=== PATIENT | female | born 1960 | race Caucasian/White ===

== ENCOUNTER 2022-01-02 10:30 | Emergency (ER) | payer OTHER, SELFPAY ==
[2022-01-02] VITALS (12 sets, daily range): BP systolic 181–238; BP diastolic 99–127; PULSE 103–117; RESP 22; TEMP 36.9; O2SAT 90–99; BMI 24.7
--- NOTE | 2022-01-02 10:50 | ED.SOB ---
HPI - SOB/Dyspnea General Chief Complaint: Hypertension Stated Complaint: severe sob, lt arm swelling, flu/cough, WIC sent Time Seen by Provider: 01/02/22 10:39 Source: patient Limitations: no limitations History of Present Illness HPI Narrative: This is a 61-year-old female with history of hypertension which is currently untreated who presents with several months of left upper extremity swelling, no swelling of the breast and skin changes that have been there for several months and shortness of breath that has been worsening over weeks to months. Patient denies fevers or chills. She denies chest pain although she states she started to get discomfort in her left upper chest. She does appreciate some skin changes of her chest and breast on the left breast region which have been slowly worsening. Patient states sometimes she short of breath if she lays flat or exerts herself but has been able to exert herself. Patient denies any abdominal pain. She is had occasional nausea and dry heaves but not persistently. She denies back or flank pain. Patient denies any swelling in her lower extremities. She denies any swelling her neck or face. Patient denies any numbness, tingling or weakness in her extremities. She states swelling of her upper extremity has been slowly worsening. She did have a DVT ultrasound in the past she states they saw something in her axilla but no blood clot at that time. Patient states her blood pressures have been in the 200s in the past but she does not take any medication, she and her state this is a little higher than normal. She denies any recent surgeries. She is a family history of breast cancer in her mother and her mother in her 40s patient was around age 17 when this occurred. Denies tobacco, no regular alcohol or illicit. Patient is accompanied by her . She has not seen a primary care in some time and is not established. Patient did ask her to leave prior to finishing her full evaluation. He states he is worried she may have share his full medical situation with him when asked directly to the patient she states it is okay to give her medical information to her gives verbal consent to share this information with him. Related Data Previous Rx's Medication Instructions Recorded enoxaparin 120 mg/0.8 mL 110 mg (0.7333 mL) SUBCUT DAILY 14 01/02/22 subcutaneous syringe (Lovenox) days #12 mL enoxaparin 120 mg/0.8 mL 110 mg (0.7333 mL) SUBCUT DAILY 14 01/02/22 subcutaneous syringe (Lovenox) days #8 mL Allergies Allergy/AdvReac Type Severity Reaction Status Date / Time No Known Drug Allergies Allergy Verified 01/02/22 11:13 Review of Systems Review of Systems ROS Unobtainable: All systems reviewed & are unremarkable except as noted in HPI and below Patient History Social History Smoking Status: Never smoker Exam Narrative Exam Narrative: GEN: well nourished, well appearing female, alert and oriented x 3, patient appears to be in mild distress. HEENT: Atraumatic, pupils are equal round reactive to light, extraocular movements are intact, nares are clear, moist mucous membranes, no facial swelling or neck swelling appreciated. HEART: Tachycardic but Regular rate and rhythm without murmur, clicks, rubs. Pulses are equal in upper and lower extremities. Patient has swelling of the left upper extremity with swelling and fullness of the left breast, patient has some obvious skin changes with erythema and no open ulceration but skin is edematous with a peau d'orange skin changes, patient has some retraction of the nipple as well as alteration in skin color, there is some vascular engorgement as well. Patient does not have a discrete lump but the entire breast feels full patient is not significantly tender and breasts is 2-3 times the size of the right breast. Patient also appears to have induration and skin changes in the left axilla as well. LUNGS:Lungs clear to auscultation, no wheezes, rales, crackles, chest moves symmetrically, mild tachypnea patient able to speak in full sentences. ABD:bowel sounds normal, soft, non-tender, no guarding, rebound, rigidity, no masses noted, no hepatosplenomegaly :No CVA tenderness MSCL: Non-tender, no muscle atrophy, muscles strength 5/5 upper and lower extremities, full range of motion, normal gait. Patient has significant swelling of left upper extremity, no tenderness, no warmth or erythema, patient has 2+ radial pulses bilaterally. NEURO:CN 2-12 intact, sensation normal SKIN: See above Initial Vital Signs Initial Vital Signs: Vital Signs Pulse Rate 114 H 01/02/22 10:54 Pulse Oximetry 96 01/02/22 10:54 Course Orders Ordered: ED Orders 01/02/22 11:06 EKG-12 Lead Routine 01/02/22 11:13 XR chest 1V Stat 01/02/22 11:15 BNP [NT-proBNP (BNP-Adult 18+)] Stat CBC Auto Diff [Complete Blood Count AUTO DIFF] Stat CMP [Comprehensive Metabolic Panel] Stat Lactate (Lactic Acid) Stat Lipase Stat Troponin & CK Cardiac Panel Stat 01/02/22 11:20 CT abdomen pelvis w con Stat CT angio chest PE protocol Stat 01/02/22 11:21 US periph venous up extrem lt Stat 01/02/22 11:29 COVID19 -Nasal RAPID/Pre-Proc Stat 01/02/22 13:16 Cancer Antigen 27.29 Stat 01/02/22 13:25 Blood Culture Stat 01/02/22 15:10 Consult to Oncology Routine TSH w/ Reflex to FT4 Urgent 01/02/22 15:49 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 Stat Vital Signs Vital signs: Vital Signs - 8 hr 01/02/22 10:59 01/02/22 10:54 01/02/22 11:00 Temperature 98.5 F Pulse Rate 117 H 114 H Respiratory Rate 22 Blood Pressure 238/114 H 221/127 H Pulse Oximetry 99 96 Oxygen Delivery Method Room Air 01/02/22 11:00 01/02/22 11:31 01/02/22 11:31 Temperature Pulse Rate 114 H 111 H Respiratory Rate Blood Pressure 196/107 H Pulse Oximetry 95 95 Oxygen Delivery Method 01/02/22 12:08 01/02/22 12:30 01/02/22 13:06 Temperature Pulse Rate 111 H 111 H 115 H Respiratory Rate Blood Pressure Pulse Oximetry 91 92 90 L Oxygen Delivery Method 01/02/22 13:07 01/02/22 13:07 01/02/22 13:30 Temperature Pulse Rate 116 H Respiratory Rate Blood Pressure 211/125 H 191/110 H Pulse Oximetry 91 Oxygen Delivery Method 01/02/22 13:30 01/02/22 14:00 01/02/22 14:00 Temperature Pulse Rate 113 H 110 H Respiratory Rate Blood Pressure 192/99 H Pulse Oximetry 97 94 Oxygen Delivery Method 01/02/22 14:30 01/02/22 14:30 01/02/22 15:21 Temperature Pulse Rate 103 H Respiratory Rate Blood Pressure 181/104 H 187/119 H Pulse Oximetry 92 Oxygen Delivery Method 01/02/22 15:21 Temperature Pulse Rate 111 H Respiratory Rate 22 Blood Pressure Pulse Oximetry 94 Oxygen Delivery Method Room Air MDM - SOB/Dyspnea Lab Data Result diagrams: 01/02/22 11:15 01/02/22 11:15 Labs: Lab Results 01/02/22 01/02/22 01/02/22 Range/Units 11:15 11:15 11:15 WBC 4.9 (4.5-11.0) X10^3/uL RBC 5.09 (4.0-5.2) X10^6/uL Hgb 16.0 (12.0-16.0) g/dL Hct 46.6 H (36-46) % MCV 91.6 (80-100) fL MCH 31.3 (26-34) PG MCHC 34.2 (30-36) % RDW 14.5 (11.6-14.8) % Plt Count 228 (150-400) X10^3/uL Neut % (Auto) 74.2 (50-75) % Lymph % (Auto) 14.6 L (25-40) % Pope % (Auto) 9.8 (3-14) % Eos % (Auto) 0.7 L (2-4) % Baso % (Auto) 0.7 (0-2) % Neut # (Auto) 3700 (5583-2320) /uL Lymph # (Auto) 700 L (4635-6250) /uL Pope # (Auto) 500 (0-900) /uL Eos # (Auto) 0 (0-450) /uL Baso # (Auto) 0 (0-100) /uL Sodium 139 (137-145) mmol/L Potassium 4.5 (3.4-5.1) mmol/L Chloride 104 (98-107) mmol/L Carbon Dioxide 28 (22-32) mmol/L BUN 8 (7-17) mg/dL Creatinine 0.69 (0.52-1.04) mg/dL Estimated GFR > 60 (>60) mL/min BUN/Creatinine Ratio 11.6 (6-22) Glucose 109 (80-110) mg/dL Lactate 1.4 (0.7-2.1) mmol/L Calcium 9.1 (8.4-10.2) mg/dL Total Bilirubin 0.6 (0.2-1.3) mg/dL AST 44 H (14-36) IU/L ALT 21 (<35) IU/L Alkaline Phosphatase 95 (38-126) U/L Total Creatine Kinase 70 (30-135) U/L CK-MB (CK-2) TNP CK-MB (CK-2) Rel Index TNP Troponin I < 0.012 (0.01-0.034) ng/mL NT-Pro-B Natriuret Pep 85 (<125) pg/mL Total Protein 8.2 (6.3-8.2) g/dL Albumin 4.4 (3.5-5.0) g/dL Globulin 3.8 (1.7-4.1) g/dL Albumin/Globulin Ratio 1.2 (1.0-2.8) Lipase 166 (23-300) U/L TSH (0.47-4.68) uIU/mL SARS-CoV-2 (PCR) (Negative) 01/02/22 01/02/22 Range/Units 11:29 15:10 WBC (4.5-11.0) X10^3/uL RBC (4.0-5.2) X10^6/uL Hgb (12.0-16.0) g/dL Hct (36-46) % MCV (80-100) fL MCH (26-34) PG MCHC (30-36) % RDW (11.6-14.8) % Plt Count (150-400) X10^3/uL Neut % (Auto) (50-75) % Lymph % (Auto) (25-40) % Pope % (Auto) (3-14) % Eos % (Auto) (2-4) % Baso % (Auto) (0-2) % Neut # (Auto) (9504-3791) /uL Lymph # (Auto) (9763-3211) /uL Pope # (Auto) (0-900) /uL Eos # (Auto) (0-450) /uL Baso # (Auto) (0-100) /uL Sodium (137-145) mmol/L Potassium (3.4-5.1) mmol/L Chloride (98-107) mmol/L Carbon Dioxide (22-32) mmol/L BUN (7-17) mg/dL Creatinine (0.52-1.04) mg/dL Estimated GFR (>60) mL/min BUN/Creatinine Ratio (6-22) Glucose (80-110) mg/dL Lactate (0.7-2.1) mmol/L Calcium (8.4-10.2) mg/dL Total Bilirubin (0.2-1.3) mg/dL AST (14-36) IU/L ALT (<35) IU/L Alkaline Phosphatase (38-126) U/L Total Creatine Kinase (30-135) U/L CK-MB (CK-2) CK-MB (CK-2) Rel Index Troponin I (0.01-0.034) ng/mL NT-Pro-B Natriuret Pep (<125) pg/mL Total Protein (6.3-8.2) g/dL Albumin (3.5-5.0) g/dL Globulin (1.7-4.1) g/dL Albumin/Globulin Ratio (1.0-2.8) Lipase (23-300) U/L TSH 1.26 (0.47-4.68) uIU/mL SARS-CoV-2 (PCR) Negative (Negative) Imaging Data Chest x-ray: Radiologist's Impression: Nadine Yuan??61??F??1960 ? Allergy/Adv: No Known Drug Allergies Close Peripheral Vascular Ultrasound (Signed) Hayder Rose 01/02/22 Chest CTA (Signed) Hayder Rose 01/02/22 Abdomen/Pelvis CT (Signed) Hayder Rose 01/02/22 Chest X-Ray (Signed) Hayder Rose 01/02/22 Launch?[address] [address] XRay Report Signed Patient: Nadine Yuan MR#: [id number] : 1960 Acct:[id number] Age/Sex: 61 / F Date of Service: 01/02/22 Loc: ED Accession Number: [id number] ?? Procedure: XR chest 1V Ordering Provider: Gogo Washington D.O. PROCEDURE:? XR CHEST 1V ? INDICATIONS:? leftarm/breast swelling, concern for CA ? TECHNIQUE:? One view of the chest was acquired.? ? COMPARISON:? None. ? FINDINGS:? ? Surgical changes and devices:? None.? ? Lungs and pleura:? There is a moderate to large left-sided pleural effusion.? Numerous faint pulmonary nodules are seen. ? Mediastinum:? Mediastinal contours appear normal.? Heart size is normal.? ? Bones and chest wall:? No suspicious bony lesions.? Age-appropriate bony degenerative changes are seen.? The left breast appears enlarged and demonstrates an irregular contour. ? ? ? IMPRESSION:? Given history, these imaging findings are highly concerning for metastatic breast cancer, with several poorly defined pulmonary nodules and a moderate to large left-sided pleural effusion. ? The left breast demonstrates an irregular contour. ? ? Dictated by: Hayder Rose M.D. on 01/02/2022 at 10:41 ? ? Approved by: Hayder Rose M.D. on 01/02/2022 at 10:42?? CT scan - chest: Radiologist's Impression: Nadine Yuan??61??F??1960 ? Allergy/Adv: No Known Drug Allergies Close Peripheral Vascular Ultrasound (Signed) Hayder Rose - 01/02/22 Chest CTA (Signed) Hayder Rose - 01/02/22 Abdomen/Pelvis CT (Signed) Hayder Rose - 01/02/22 Chest X-Ray (Signed) Hayder Rose - 01/02/22 Launch?[place] [address] CT Scan Report Signed Patient: Nadine Yuan MR#: [id number] : 1960 Acct:[id number] Age/Sex: 61 / F Date of Service: 01/02/22 Loc: ED Accession Number: [id number] ?? Procedure: CT angio chest PE protocol Ordering Provider: Gogo Washington D.O. PROCEDURE:? CT ANGIO CHEST PE PROTOCOL ? INDICATIONS:? tachycardia, PE r/o + likely breast ca ? TECHNIQUE:? After the administration of intravenous contrast, 2 mm thick sections acquired from the pulmonary apices to the posterior costophrenic angles.? 3-dimensional maximum intensity projection (MIP) coronal and sagittal reformats were then acquired through the thorax.? For radiation dose reduction, the following was used:? automated exposure control, adjustment of mA and/or kV according to patient size.? ? COMPARISON:? [facility], US, US PERIPH VENOUS UP EXTREM LT, 01/02/2022, 12:12.? [facility], CR, XR CHEST 1V, 01/02/2022, 11:15.? [facility], CT, CT ABDOMEN PELVIS W CON, 01/02/2022, 12:03. ? FINDINGS:? Image quality:? Excellent.? ? Pulmonary arteries:? Pulmonary arteries are normal in size, and demonstrate no intraluminal filling defects to suggest central pulmonary embolism.? ? Lungs and pleura:? There is a large left-sided pleural effusion, with atelectasis of the majority of the left lung.? Minimal nodular thickening can be seen involving the left pleural surface.? The ? Within the right lung, there are several pulmonary soft tissue nodules seen.? The largest of these is seen within the right upper lobe medially that measures 13 by 13 mm. ? Mediastinum:? The mediastinum is shifted to the right.? Numerous enlarged mediastinal lymph nodes are seen, including a precarinal lymph node measuring 3.1 x 1.5 cm and a subcarinal lymph node that measures 3 x 1.5 cm. ? Heart size is normal, without pericardial effusion.? Thoracic aorta is normal in caliber and enhancement.? Esophagus is normal in caliber, without hiatal hernia.? ? Bones and chest wall:? Within the inferior medial aspect of the left breast, there is the a poorly defined mass seen that measures at least 4.7 cm.? There is associated dermal involvement, with generalized dermal thickening.? There is an additional apparent mass seen associated with the nipple of the left breast that measures at least 3.7 cm.? Delete current sent There is abnormal skin thickening seen involving the left breast.? Within the upper-outer quadrant of the left breast, there are several abnormal nodules seen. ? Enlarged abnormal left axillary lymph nodes are seen, with the largest solitary lymph node measuring 4.7 by 4 cm, as on series 4, image 28. Borderline prominent right axillary lymph nodes are also seen.? ? No suspicious bony lesions.? Ribs and thoracic spine appear intact throughout.? Thyroid gland demonstrates no significant abnormality.? ? Abdomen:? Incidental note is made of focal fatty infiltration adjacent to the falciform ligament, which is not regarded to be pathologic.? The liver is normal in size and demonstrates no suspicious lesions. ? ? IMPRESSION:? Negative for pulmonary embolism. ? Advanced metastatic inflammatory breast cancer, with left breast masses with associated dermal involvement and generalized dermal thickening of the left breast.? Enlarged lymph nodes can be seen involving the upper outer quadrant of the left breast as well as the left axilla.? ? Enlarged mediastinal lymph nodes are also seen. ? There is a large left-sided pleural effusion seen, with faint areas of nodular pleural thickening, which is attributed to neoplastic pleural involvement. ? The mediastinum is shifted to the right, which is attributed to mass effect from the large left-sided pleural effusion.? ? Dictated by: Hayder Rose M.D. on 01/02/2022 at 11:29 ? ? Approved by: Hayder Rose M.D. on 01/02/2022 at 11:37?? CT scan - abdomen/pelvis: Radiologist's Impression: Close Peripheral Vascular Ultrasound (Signed) Hayder Rose - 01/02/22 Chest CTA (Signed) Hayder Rose - 01/02/22 Abdomen/Pelvis CT (Signed) Hayder Rose - 01/02/22 Chest X-Ray (Signed) Hayder Rose - 01/02/22 Launch?[place] [address] CT Scan Report Signed Patient: Nadine Yuan MR#: [id number] : 1960 Acct:[id number] Age/Sex: 61 / F Date of Service: 01/02/22 Loc: ED Accession Number: [id number] ?? Procedure: CT abdomen pelvis w con Ordering Provider: Gogo Washington D.O. PROCEDURE:? CT ABDOMEN PELVIS W CON ? INDICATIONS:? swelling left arm/breast, tachycardia, htn ? TECHNIQUE:? After the administration of IV contrast, axial sections were acquired from the lung bases to the pubic symphysis.? Coronal and sagittal reformats were performed.? For radiation dose reduction, the following was used:? automated exposure control, adjustment of mA and/or kV according to patient size. ? COMPARISON:? [facility], US, US PERIPH VENOUS UP EXTREM LT, 01/02/2022, 12:12.? [facility], CT, CT ANGIO CHEST PE PROTOCOL, 01/02/2022, 12:03.? [facility], CR, XR CHEST 1V, 01/02/2022, 11:15. ? FINDINGS:? Image quality:? Excellent.? ? Lung bases:? There is partial visualization of a large left-sided pleural effusion with associated left lung base atelectasis.? Right-sided pulmonary soft tissue nodules are partially seen. Left breast masses and left normal thickening is partially seen. Heart:? No significant findings. ? ? ABDOMEN: Liver: Incidental note is made of focal fatty infiltration adjacent to the falciform ligament, which is not regarded to be pathologic.? The liver is normal in size and demonstrates no suspicious lesions. Gallbladder:? Unremarkable.? ? Biliary ducts:? Unremarkable.? ? Pancreas:? Unremarkable.? ? Spleen:? Unremarkable.? ? Adrenal Glands:? Unremarkable.? ? Kidneys and Ureters:? Unremarkable.? ? ? Stomach and Bowel:? Stomach, small bowel loops, and colon are unremarkable.? A normal appendix is incidentally noted.? Colonic diverticulosis is seen, without findings of active diverticulitis. Peritoneum:? No abnormal intraperitoneal fluid.? No free air.? ? Ventral Wall: A mild periumbilical hernia is seen, containing fat. ? Abdominal Nodes:? No retroperitoneal or mesenteric adenopathy by size criteria.? Vessels:? Aorta and inferior vena cava are normal in size.? ? PELVIS: Pelvic Organs:? The uterus appears normal for age.? No adnexal masses are seen.? Calcification can be seen involving right adnexal region, which is attributed to the right ovary, as on series 3, image 38.? Bladder:? Unremarkable.? ? Pelvic Nodes: No enlarged lymph nodes.? Miscellaneous: No inguinal hernias are seen. ? ? ? Bones:? Generalized degenerative changes are seen, which are worst involving the L4-L5 level.? Mild levoconvex scoliotic curvature is noted.? ? ? IMPRESSION:? ? No findings of metastatic disease can be seen within the abdomen and pelvis. ? Inflammatory breast cancer of the left breast until proven otherwise.? ? There is a large left-sided pleural effusion, with left lung base atelectasis, which is attributed to metastatic involvement. ? ? ? Incidental note is made of: Fatty liver infiltration along the falciform ligament Mild fat containing periumbilical hernia Diverticulosis, without active diverticulitis Normal appendix Mild levoconvex scoliotic curvature Focal L4-L5 degenerative change ? ? Dictated by: Hayder Rose M.D. on 01/02/2022 at 11:38 ? ? Approved by: Hayder Rose M.D. on 01/02/2022 at 11:41? US - DVT: Radiologist's Impression: [address] [address] Ultrasound Report Signed Patient: Nadine Yuan MR#: [id number] : 1960 Acct:[id number] Age/Sex: 61 / F Date of Service: 01/02/22 Loc: ED Accession Number: [id number] ?? Procedure: US periph venous up extrem lt Ordering Provider: Gogo Washington D.O. PROCEDURE:? US PERIPH VENOUS UP EXTREM LT ? INDICATIONS:? left upper arm swelling, suspected ca ? TECHNIQUE:? Real-time imaging, as well as color and pulse Doppler interrogation, was performed of the left upper extremity deep veins from the inferior neck to the antecubital fossa.? ? COMPARISON:? [facility], CT, CT ANGIO CHEST PE PROTOCOL, 01/02/2022, 12:03.? [facility], CT, CT ABDOMEN PELVIS W CON, 01/02/2022, 12:03.? [facility], CR, XR CHEST 1V, 01/02/2022, 11:15. ? FINDINGS:? Within the mid left subclavian vein, there is partially occlusive thrombus.? The vein itself appears partially compressed by in addition to solid soft tissue mass measuring 1.8 x 1.3 x 3.9 cm. ? No additional findings of left upper extremity deep venous thrombosis can be seen. ? No findings of superficial venous thrombosis are seen. ? ? IMPRESSION:? Partially occlusive thrombus within the mid left subclavian vein. ? The subclavian vein appears partially compressed by an adjacent solid mass, which is likely related to a metastatic lymph node. ? ? Dictated by: Hayder Rose M.D. on 01/02/2022 at 11:43 ? ? Approved by: Hayder Rose M.D. on 01/02/2022 at 11:44? ECG Data Attestation: I personally reviewed and interpreted this ECG as follows: Prior ECG tracings: not available for review Interpretation: Sinus tachycardia rate of 109 ID 158 QRS 80 QTC 401. No acute ST elevation or depression noted patient has Q-wave in lead 3 but no S1 Q 3 T3 appreciated. No priors available. MDM Narrative Medical decision making narrative: This is a 61-year-old female who comes emergency department with complaint of swelling of her left upper extremity, left chest with increasing shortness of breath. Patient's exam findings and history are concerning for cancer, she is significant swelling left upper extremity ultrasound shows a partially occlusive thrombus in the subclavian, CT angio does not show pulmonary emboli but shows changes consistent with metastatic cancer as well as a large pleural effusion on the left mediastinal shift to the right. Multiple pulmonary soft tissue nodules with poorly defined mass approximately 5 cm and dermal thickening as well as an additional mass that is 4 cm, patient has mL large axillary nodes no metastatic bone disease appreciated. CT abdomen pelvis does not show any changes within the abdomen pelvis. Patient case was discussed with Oncology. They do ask for a CA 11/25/2028. They agree with plan to admit patient for thoracentesis for cytology, comfort, goal of obtaining a biopsy of 1 of the lesions to get patient started in established started on treatment. They do recommend Lovenox initially until patient has biopsy and thoracentesis so she does not have to hold her Eliquis or other anticoagulants for 72 hours. Patient was accepted by hospitalist. After long discussions multiple times with patient and her patient is politely but adamant that she is not going to be admitted. She states she will follow-up although she also states that she does not really want to have any treatment. We did discuss if she would return for thoracentesis versus be willing to have it done here in the emergency department by myself today. Patient very politely refuses today as well although we discussed it would make her feel much more comfortable as well as facilitate some workup and then she could start oral anticoagulant. Patient also discussed their some barriers to follow-up with no primary care currently. She will seek out her own primary care but we also discussed she can follow up with Oncology they have taken her number and plan to reach out to her as well. Her 's at bedside is not currently happy with her choice of decision and has expressed this as well. Was also offered social work consultation assist with resources or if patient prefers palliative care without aggressive medical treatment these are resources that can be provided as well either through Oncology, primary care palliative care. Patient and I also discussed she can return at any time. She states she is willing to do the Lovenox she is willing to follow up with Oncology she may or may not do this but was given all the contact information and asked to call on Tuesday. Patient and and I discussed she would not likely tonight but she will continue to worsen and her pleural effusion with mediastinal shift is emergent and would very much benefit and may kill her in the short term. We also discussed if she is not on anticoagulation she can easily developed a large clot or pulmonary emboli. Discharge Plan Departure Patient Disposition: Left Against Medical Advice Clinical Impression: Metastatic breast cancer, Pleural effusion on left, Left subclavian vein thrombosis Instructions: Breast Cancer in Women Activity Restrictions/Additional Instructions: I am glad that you came to see us today I hope that you continue to follow-up and see oncology. Treatment of cancer has changed a lot in the past 30 years and has significantly improved since then. Follow up with Dr. Rizvi or one of his partners from oncology. They may need to see you in [place] which may facilitate your follow-up faster. Please call to set up an appointment on Tuesday. The office may also reach out to you to set up follow up. You have a blood clot in your left subclavian vein as well as masses and changes consistent with metastatic breast cancer and a large collection of fluid or a pleural effusion in your left lung that is seen today on your imaging. I strongly recommend that you stay in the hospital so we can treat you, make you feel more comfortable as well as facilitate your workup much faster than if you go home today. By going home today will delay your treatment by several weeks or longer. Recommended that you use subcutaneous Lovenox, a blood thinner to prevent further blood clotting until you have your thoracentesis and biopsy and then you can be on an oral blood thinner to prevent blood clots. This medicine does not treat cancer, you will still need to see the oncologist to get further workup for potential treatment and so you can no your options for treatment. Prescription was sent to [facility] in [place]. You may return at any time if you are having increasing shortness of breath, passing out, swelling of your head, neck, bilateral upper extremities or chest, persistent vomiting, fevers or other new or concerning symptoms. Prescriptions: New enoxaparin [Lovenox] 120 mg/0.8 mL syringe 110 mg SUBCUT DAILY 14 Days Qty: 8 0RF enoxaparin [Lovenox] 120 mg/0.8 mL syringe 110 mg SUBCUT DAILY 14 Days Qty: 12 0RF Referrals: Delta Rizvi MD [Physician] - Stand Alone Forms: Against Medical Advice
--- NOTE | 2022-01-02 11:13 | DI.RAD.S_ITS ---
PROCEDURE: XR CHEST 1V INDICATIONS: leftarm/breast swelling, concern for CA TECHNIQUE: One view of the chest was acquired. COMPARISON: None. FINDINGS: Surgical changes and devices: None. Lungs and pleura: There is a moderate to large left-sided pleural effusion. Numerous faint pulmonary nodules are seen. Mediastinum: Mediastinal contours appear normal. Heart size is normal. Bones and chest wall: No suspicious bony lesions. Age-appropriate bony degenerative changes are seen. The left breast appears enlarged and demonstrates an irregular contour. IMPRESSION: Given history, these imaging findings are highly concerning for metastatic breast cancer, with several poorly defined pulmonary nodules and a moderate to large left-sided pleural effusion. The left breast demonstrates an irregular contour. Dictated by: Hayder Rose M.D. on 01/02/2022 at 10:41 Approved by: Hayder Rose M.D. on 01/02/2022 at 10:42
--- NOTE | 2022-01-02 11:20 | DI.CT.S_ITS ---
PROCEDURE: CT ABDOMEN PELVIS W CON INDICATIONS: swelling left arm/breast, tachycardia, htn TECHNIQUE: After the administration of IV contrast, axial sections were acquired from the lung bases to the pubic symphysis. Coronal and sagittal reformats were performed. For radiation dose reduction, the following was used: automated exposure control, adjustment of mA and/or kV according to patient size. COMPARISON: [facility], US, US PERIPH VENOUS UP EXTREM LT, 01/02/2022, 12:12. [facility], CT, CT ANGIO CHEST PE PROTOCOL, 01/02/2022, 12:03. [facility], CR, XR CHEST 1V, 01/02/2022, 11:15. FINDINGS: Image quality: Excellent. Lung bases: There is partial visualization of a large left-sided pleural effusion with associated left lung base atelectasis. Right-sided pulmonary soft tissue nodules are partially seen. Left breast masses and left normal thickening is partially seen. Heart: No significant findings. ABDOMEN: Liver: Incidental note is made of focal fatty infiltration adjacent to the falciform ligament, which is not regarded to be pathologic. The liver is normal in size and demonstrates no suspicious lesions. Gallbladder: Unremarkable. Biliary ducts: Unremarkable. Pancreas: Unremarkable. Spleen: Unremarkable. Adrenal Glands: Unremarkable. Kidneys and Ureters: Unremarkable. Stomach and Bowel: Stomach, small bowel loops, and colon are unremarkable. A normal appendix is incidentally noted. Colonic diverticulosis is seen, without findings of active diverticulitis. Peritoneum: No abnormal intraperitoneal fluid. No free air. Ventral Wall: A mild periumbilical hernia is seen, containing fat. Abdominal Nodes: No retroperitoneal or mesenteric adenopathy by size criteria. Vessels: Aorta and inferior vena cava are normal in size. PELVIS: Pelvic Organs: The uterus appears normal for age. No adnexal masses are seen. Calcification can be seen involving right adnexal region, which is attributed to the right ovary, as on series 3, image 38. Bladder: Unremarkable. Pelvic Nodes: No enlarged lymph nodes. Miscellaneous: No inguinal hernias are seen. Bones: Generalized degenerative changes are seen, which are worst involving the L4-L5 level. Mild levoconvex scoliotic curvature is noted. IMPRESSION: No findings of metastatic disease can be seen within the abdomen and pelvis. 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 There is a large left-sided pleural effusion, with left lung base atelectasis, which is attributed to metastatic involvement. Incidental note is made of: Fatty liver infiltration along the falciform ligament Mild fat containing periumbilical hernia Diverticulosis, without active diverticulitis Normal appendix Mild levoconvex scoliotic curvature Focal L4-L5 degenerative change Dictated by: Hayder Rose M.D. on 01/02/2022 at 11:38 Approved by: Hayder Rose M.D. on 01/02/2022 at 11:41
--- NOTE | 2022-01-02 11:20 | DI.CT.S_ITS ---
PROCEDURE: CT ANGIO CHEST PE PROTOCOL INDICATIONS: tachycardia, PE r/o + likely breast ca TECHNIQUE: After the administration of intravenous contrast, 2 mm thick sections acquired from the pulmonary apices to the posterior costophrenic angles. 3-dimensional maximum intensity projection (MIP) coronal and sagittal reformats were then acquired through the thorax. For radiation dose reduction, the following was used: automated exposure control, adjustment of mA and/or kV according to patient size. COMPARISON: [facility], US, US PERIPH VENOUS UP EXTREM LT, 01/02/2022, 12:12. [facility], CR, XR CHEST 1V, 01/02/2022, 11:15. [facility], CT, CT ABDOMEN PELVIS W CON, 01/02/2022, 12:03. FINDINGS: Image quality: Excellent. Pulmonary arteries: Pulmonary arteries are normal in size, and demonstrate no intraluminal filling defects to suggest central pulmonary embolism. Lungs and pleura: There is a large left-sided pleural effusion, with atelectasis of the majority of the left lung. Minimal nodular thickening can be seen involving the left pleural surface. The Within the right lung, there are several pulmonary soft tissue nodules seen. The largest of these is seen within the right upper lobe medially that measures 13 by 13 mm. Mediastinum: The mediastinum is shifted to the right. Numerous enlarged mediastinal lymph nodes are seen, including a precarinal lymph node measuring 3.1 x 1.5 cm and a subcarinal lymph node that measures 3 x 1.5 cm. Heart size is normal, without pericardial effusion. Thoracic aorta is normal in caliber and enhancement. Esophagus is normal in caliber, without hiatal hernia. Bones and chest wall: Within the inferior medial aspect of the left breast, there is the a poorly defined mass seen that measures at least 4.7 cm. There is associated dermal involvement, with generalized dermal thickening. There is an additional apparent mass seen associated with the nipple of the left breast that measures at least 3.7 cm. Delete current sent There is abnormal skin thickening seen involving the left breast. Within the upper-outer quadrant of the left breast, there are several abnormal nodules seen. Enlarged abnormal left axillary lymph nodes are seen, with the largest solitary lymph node measuring 4.7 by 4 cm, as on series 4, image 28. Borderline prominent right axillary lymph nodes are also seen. No suspicious bony lesions. Ribs and thoracic spine appear intact throughout. Thyroid gland demonstrates no significant abnormality. Abdomen: Incidental note is made of focal fatty infiltration adjacent to the falciform ligament, which is not regarded to be pathologic. The liver is normal in size and demonstrates no suspicious lesions. IMPRESSION: Negative for pulmonary embolism. Advanced metastatic inflammatory breast cancer, with left breast masses with associated dermal involvement and generalized dermal thickening of the left breast. Enlarged lymph nodes can be seen involving the upper outer quadrant of the left breast as well as the left axilla. Enlarged mediastinal lymph nodes are also seen. There is a large left-sided pleural effusion seen, with faint areas of nodular pleural thickening, which is attributed to neoplastic pleural involvement. The mediastinum is shifted to the right, which is attributed to mass effect from the large left-sided pleural effusion. Dictated by: Hayder Rose M.D. on 01/02/2022 at 11:29 Approved by: Hayder Rose M.D. on 01/02/2022 at 11:37
--- NOTE | 2022-01-02 11:21 | DI.US.S_ITS ---
PROCEDURE: US PERIPH VENOUS UP EXTREM LT INDICATIONS: left upper arm swelling, suspected ca TECHNIQUE: Real-time imaging, as well as color and pulse Doppler interrogation, was performed of the left upper extremity deep veins from the inferior neck to the antecubital fossa. COMPARISON: [facility], CT, CT ANGIO CHEST PE PROTOCOL, 01/02/2022, 12:03. [facility], CT, CT ABDOMEN PELVIS W CON, 01/02/2022, 12:03. [facility], CR, XR CHEST 1V, 01/02/2022, 11:15. FINDINGS: Within the mid left subclavian vein, there is partially occlusive thrombus. The vein itself appears partially compressed by in addition to solid soft tissue mass measuring 1.8 x 1.3 x 3.9 cm. No additional findings of left upper extremity deep venous thrombosis can be seen. No findings of superficial venous thrombosis are seen. 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 The subclavian vein appears partially compressed by an adjacent solid mass, which is likely related to a metastatic lymph node. Dictated by: Hayder Rose M.D. on 01/02/2022 at 11:43 Approved by: Hayder Rose M.D. on 01/02/2022 at 11:44
[2022-01-02 11:35] LABS: Add Manual Diff / Slide Review NO; Basophils Absolute Auto 0 /uL (0-100); Basophils Percent Auto 0.7 % (0-2); Eosinophils Absolute Auto 0 /uL (0-450); Eosinophils Percent Auto 0.7 % (2-4); Hematocrit 46.6 % (36-46); Lymphocytes Absolute Auto 700 /uL (1100-4500); Lymphocytes Percent Auto 14.6 % (25-40); Mean Corpuscular HGB Conc 34.2 % (30-36); Mean Corpuscular Hemoglobin 31.3 PG (26-34); Mean Corpuscular Volume 91.6 fL (80-100); Monocytes Absolute Auto 500 /uL (0-900); Monocytes Percent Auto 9.8 % (3-14); Neutrophils Absolute Auto 3700 /uL (1500-7000); Neutrophils Percent Auto 74.2 % (50-75); Platelet Count 228 X10^3/uL (150-400); Red Blood Cell Count 5.09 X10^6/uL (4.0-5.2); Red Cell Distribution Width 14.5 % (11.6-14.8); White Blood Cell Count 4.9 X10^3/uL (4.5-11.0)
[2022-01-02 11:47] LABS: Alanine Aminotransferase 21 IU/L (<35); Albumin 4.4 g/dL (3.5-5.0); Albumin Globulin Ratio 1.2 (1.0-2.8); Alkaline Phosphatase 95 U/L (38-126); Aspartate Aminotransferase 44 IU/L (14-36); BUN Creatinine Ratio 11.6 (6-22); Bilirubin Total 0.6 mg/dL (0.2-1.3); Blood Urea Nitrogen 8 mg/dL (7-17); Calcium 9.1 mg/dL (8.4-10.2); Carbon Dioxide 28 mmol/L (22-32); Chloride 104 mmol/L (98-107); Creatine Kinase 70 U/L (30-135); Estimated Glomerular Filt Rate > 60 mL/min (>60); Globulin 3.8 g/dL (1.7-4.1); Glucose 109 mg/dL (80-110); HEMOLYSIS < 15 (0-50); Lipase 166 U/L (23-300); Potassium 4.5 mmol/L (3.4-5.1); Sodium 139 mmol/L (137-145); Total Protein 8.2 g/dL (6.3-8.2)
[2022-01-02 11:48] LABS: Lactate (Lactic Acid) 1.4 mmol/L (0.7-2.1)
[2022-01-02 11:50] LABS: COVID19 -Nasal RAPID Negative (Negative)
[2022-01-02 12:00] LABS: NT-proBNP (BNP-Adult 18+) 85 pg/mL (<125); Troponin I < 0.012 ng/mL (0.01-0.034)
--- NOTE | 2022-01-02 15:50 | PC.NURSE ---
[employer]IST referral placed for phone call f/u on Tuesday / next week. Pt is newly dx with metastatic breast CA, is very anxious and is currently refusing further treatment. Signing out AMA.
[2022-01-02 15:58] LABS: TSH w/ Reflex to FT4 1.26 uIU/mL (0.47-4.68)
[2022-01-05 08:50] LABS: Cancer Antigen 27.29 355.1 U/mL (0.0-38.6)
--- NOTE | 2022-01-05 13:23 | CM.SWNOTE ---
DRAWING HAND f/u Note DRAWING HAND calls Oncology ALFREDA Spencer, it is reported that as of 01/05/22, patient has not set up appt with oncology. Ara endorses that patient needs PCP referral for oncology prior to setting up treatment. On 01/05/22, DRAWING HAND calls patient and leaves requesting return call. Radha Mullins, HEAD OF STRATEGY
== END 2022-01-02 16:28 | disposition left against medical advice (07) ==
PROVIDERS: Student in an Organized Health Care Education/Training Program; Emergency Provider Emergency Medicine
DX: C50.919 Malignant neoplasm of unspecified site of unspecified female breast (principal); J90 Pleural effusion, not elsewhere classified; I82.B12 Acute embolism and thrombosis of left subclavian vein; R00.0 Tachycardia, unspecified; Z20.822 Contact with and (suspected) exposure to COVID-19
CPT/HCPCS: 36415; 71045; 71275; 74177; 80053; 82550; 83605; 83690; 83880; 84443; 84484; 85025; 86300; 87040; 87635; 93005; 93971; 99284; C9803; Q9967